=== PATIENT | male | born 1950 | race Caucasian/White ===

== ENCOUNTER → 2018-07-13 | Outpatient (CLI) | payer MEDICARE ==
[~2018-07-13] MED LIST: ASPIRIN CHEWABL81 MG PO; ATORVASTATIN CA20 M1 PO; DILTIAZEM 24HR120 MG PO; LEVOTHYROXINE175 MCG PO; MOBIC7.5 MG PO; OMEPRAZOLE40 MG PO; PROPAFENONE HC150 MG PO; XARE20MG PO; ZESTORETIC 10-1 EACH PO
[2018-07-13 09:08] LABS: ALBUMIN 3.5 gm/dl (3.1-4.5); ALKALINE PHOSPHATASE 55 U/L (45-117); BUN 24 mg/dl (7-24); CHLORIDE 105 mmol/L (98-107); CREATININE 1.27 mg/dL (0.70-1.30); POTASSIUM 4.1 mmol/L (3.5-5.1); SGOT/AST 40 IU/L (3-35); SGPT/ALT 103 U/L (12-78); SODIUM 140 mmol/L (136-145); TOTAL PROTEIN 6.6 gm/dL (6.4-8.2)
== END | disposition home or self-care (01) ==
LOC: LAB 07:55
PROVIDERS: Internal Medicine
DX: I48.91 Unspecified atrial fibrillation (principal)

== ENCOUNTER → 2018-07-18 | Outpatient (CLI) | payer MEDICARE | END | disposition home or self-care (01) | LOC: ORTHO 02:01 | DX: M17.12 Unilateral primary osteoarthritis, left knee (principal) ==

== ENCOUNTER → 2018-08-01 | Outpatient (CLI) | payer MEDICARE ==
[~2018-08-01] MED LIST changes: +TOPROL XL50 M1 PO
== END | disposition home or self-care (01) ==
LOC: RESCLI 02:29
DX: E78.5 Hyperlipidemia, unspecified (principal); I10 Essential (primary) hypertension; E55.9 Vitamin D deficiency, unspecified; E03.9 Hypothyroidism, unspecified; K21.9 Gastro-esophageal reflux disease without esophagitis; M17.12 Unilateral primary osteoarthritis, left knee; I48.0 Paroxysmal atrial fibrillation; E66.09 Other obesity due to excess calories; Z68.31 Body mass index [BMI] 31.0-31.9, adult; Z79.899 Other long term (current) drug therapy; Z79.82 Long term (current) use of aspirin; Z76.89 Persons encountering health services in other specified circumstances; Z88.5 Allergy status to narcotic agent

== ENCOUNTER 2018-08-05 22:55 | Inpatient (IN) | payer MEDICARE ==
[~2018-08-05] VITALS: Ht 190.5 cm; Wt 114.1 kg
--- NOTE | ~2018-08-05 | EKG ---
[place], [place] ELECTROCARDIOGRAM REPORT NAME: MIGUEL CARMICHAEL UNIT #: [id number] ROOM: 419 DOCTOR: LAZARO DRAFT REPORT BIRTHDATE: [address] 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
--- NOTE | ~2018-08-05 | CON ---
[place], [place] REPORT OF CONSULTATION [id number] UN[facility] #: [id number] ROOM: 419 DOCTOR[facility] B[facility] [birth year] DOS: 08/06/2018 CARDIOLOGY CONSULTATION HISTORY OF PRESENT ILLNESS: The patient is a 68-year-old male who came in with history of lightheadedness, dyspnea and progressively gotten worse and came in with atrial fibrillation with RVR through the Emergency Room. His troponin is only minimally probably related to the tachycardia, not significant and electrolytes are unremarkable and magnesium is also unremarkable. Creatinine is 1.26, high normal for last a few days and no chills or fever or vomiting or constipation. Initial electrolytes are also unremarkable. Vital signs first heart rate is about 130-150, atrial fibrillation with rapid ventricular response. Placed on the Cardizem drip. The patient has history of hypertension, who was here with similar symptoms in the past, paroxysmal atrial fibrillation, moderate obesity, thyroid cancer in the past, history of thyroidectomy, tonsillectomy, back surgery and a son works at [employer] who I discussed at length with him. No history of smoking, no alcohol, no illicit drugs. The patient on diltiazem 120 mg daily, levothyroxine, lisinopril, propafenone 150 mg 3 times a day. The patient is on rivaroxaban anticoagulation, baby aspirin daily and we may put on metoprolol 25 mg daily at bedtime to optimize him, keep him in the sinus rhythm. No acute myocardial infarction. Blood pressure has been stable now and 110/54, heart rate is 80. The patient is on Xarelto and switch to oral Cardizem today. A small dose of beta ant would help him. We will have the Toprol given at bedtime. I will follow the patient soon and with electrocardiogram, actually this patient is in sinus rhythm, otherwise we may further increase the medication appropriately and I did explain to the patient and the family the situation and the son is also aware of it. We will continue current medication. PHYSICAL EXAMINATION: VITAL SIGNS: Stable. NECK: No jugular venous distention. The patient in sinus rhythm. Supple. LUNGS: No rales. HEART: S1, S2 regular. ABDOMEN: Soft. SKIN: Color is good. GENERAL: Moderately obese. 1+ ankle edema. NEUROLOGICAL: No focal neurological deficit noted. IMPRESSION: The patient continued to improve sinus rhythm, paroxysmal atrial fibrillation, symptomatic. We will try to keep him in sinus rhythm. Optimize the medical therapy. [place], [place] REPORT OF CONSULTATION NAME: MIGUEL CARMICHAEL UNIT #: [id number] ROOM: [facility] DOCTOR: ISAAC WOODRUFF MD, FACC BIRTHDATE: [birth year] ISAAC WOODRUFF MD CM:CONSTR:REPORT OF CONSULTATION 1613 08/10/18 0748 interface
[~2018-08-05 22:55] MED LIST changes: -TOPROL XL50 M1 PO
[2018-08-05 23:02] VITALS: BP 128/80
[2018-08-05 23:21] VITALS: BP 112/73
[2018-08-05 23:21] LABS: BASO # 0.1 10*3/uL (0.0-0.1); BASO % 0.7 % (0.0-1.0); EOS # 0.6 10*3/uL (0.0-0.4); HEMATOCRIT 41.5 % (42.0-52.0); HEMOGLOBIN 14.2 g/dl (14.0-18.0); LYMPH # 2.2 10*3/uL (1.3-4.4); LYMPH % 21.3 % (27.0-41.0); MEAN CELL VOLUME 87.2 fl (80.0-94.0); MEAN CORPUSCULAR HGB 29.8 pg (27.0-31.0); MEAN CORPUSCULAR HGB CONC 34.2 g/dl (33.0-37.0); MEAN PLATELET VOLUME 9.4 fl (9.6-12.3); MONO # 0.9 10*3/uL (0.1-1.0); MONO % 9.1 % (3.0-9.0); NEUT # 6.3 10*3/uL (2.3-7.9); NEUT % 62.5 % (47.0-73.0); PLATELET COUNT AUTOMATED 333 10*3/uL (130-400); RED BLOOD COUNT 4.76 10*6/uL (4.50-5.90); RED CELL DISTRI WIDTH 12.8 % (0-14.5); WHITE BLOOD COUNT 10.1 10*3/uL (4.8-10.8)
[2018-08-05 23:31] LABS: INTERNATIONAL NORM RATIO 1.1 (2.0-3.5)
[2018-08-05 23:40] LABS: ALBUMIN 3.4 gm/dl (3.1-4.5); ALKALINE PHOSPHATASE 94 U/L (45-117); BUN 15 mg/dl (7-24); CHLORIDE 103 mmol/L (98-107); CREATININE 1.39 mg/dL (0.70-1.30); LIPASE 141 U/L (73-393); POTASSIUM 3.4 mmol/L (3.5-5.1); SGOT/AST 22 IU/L (3-35); SGPT/ALT 39 U/L (12-78); SODIUM 138 mmol/L (136-145); TOTAL PROTEIN 7.4 gm/dL (6.4-8.2)
--- NOTE | 2018-08-05 23:45 | NUR ---
CRITICAL LAB TROP 0.073.
[2018-08-05 23:46] LABS: TROPONIN I 0.073 ng/ml (<0.045)
[2018-08-05 23:47] VITALS: BP 104/58
[2018-08-05 23:50] VITALS: BP 96/62
[2018-08-05 23:57] LABS: ACT PARTIAL THROMBO TIME 32.9 SECONDS (20.8-31.5)
[2018-08-06] VITALS (10 sets, daily range): BP systolic 92–151; BP diastolic 54–74
--- NOTE | 2018-08-06 00:30 | NUR ---
A 68, admitted to , under the services of ABIMAEL Aviles DO with a diagnosis of AFIB W RVR. Chief complaint is AFIB W RVR. Patient arrived via bed from ER. Monitor applied. Initial assessment completed. Vital signs taken and recorded. ABIMAEL AVILES DO notified of admission to the unit. Orders received. See assessment for past medical history, medications and allergies. Patient and/or family oriented to unit. [facility] visitation policy reviewed. Clothing/patient valuable form completed. HANNAH TORIBIO
[2018-08-06] MEDS ORDERED: PROPAFENONE HC150 MG PO (00:38)
--- NOTE | 2018-08-06 01:09 | NUR ---
ATTEMPTED TO CONTACT DR WOODRUFF FOR CONSULT. NO ANSWER AT THIS TIME.
--- NOTE | 2018-08-06 01:12 | NUR ---
MED REC UP TO DATE WITH PATIENT.
--- NOTE | 2018-08-06 01:19 | NUR ---
NOTIFIED DR MCCALL OF NO ANSWER FROM CARDIOLOGY AND PATIENT BEING ON CARDIZEM GTT. STATED TO LEAVE TO GTT AT 15ML/HR AND CALL HIM BACK IF HIS HEART RATE CONTINUES TO GO UP OR HIS BP DROPS. WILL MONITOR PATIENT.
--- NOTE | 2018-08-06 02:01 | NUR ---
PATIENT MEDICATED WITH PRN TYLENOL ORDERD FOR C/O A HEADACHE
--- NOTE | 2018-08-06 02:27 | NUR ---
DR MCCALL NOTIFIED OF CRITICAL TROPONIN, TRENDING UP. AWAITING RETURN CALL FROM CARDIOLOGY. PATIENT CHEST PAIN FREE WITH CARDIZEM DRIP MAINTAINED
--- NOTE | 2018-08-06 03:17 | NUR ---
CARDIZEM GTT TITRATED TO 10 ML/HR AT THIS TIME
--- NOTE | 2018-08-06 05:33 | NUR ---
DR MCCALL AWARE OF CRITICAL TROPONIN 0.115. NO ORDERS.
[2018-08-06 05:34] LABS: BUN 14 mg/dl (7-24); CHLORIDE 108 mmol/L (98-107); CREATININE 1.26 mg/dL (0.70-1.30); PHOSPHOROUS 4.1 mg/dL (2.5-4.9); SODIUM 143 mmol/L (136-145)
[2018-08-06 05:37] LABS: POTASSIUM 4.4 mmol/L (3.5-5.1)
--- NOTE | 2018-08-06 06:00 | NUR ---
PATIENT HR 82-89. CARDIZEM GTT TITRATED DOWN TO 5ML/HR.
[2018-08-06 06:21] LABS: BASO # 0.1 10*3/uL (0.0-0.1); EOS # 0.5 10*3/uL (0.0-0.4); HEMOGLOBIN 13.1 g/dl (14.0-18.0); LYMPH % 21.6 % (27.0-41.0); MEAN CELL VOLUME 90.1 fl (80.0-94.0); MEAN CORPUSCULAR HGB 29.5 pg (27.0-31.0); MEAN CORPUSCULAR HGB CONC 32.8 g/dl (33.0-37.0); MEAN PLATELET VOLUME 9.8 fl (9.6-12.3); MONO # 0.8 10*3/uL (0.1-1.0); MONO % 8.9 % (3.0-9.0); NEUT # 5.9 10*3/uL (2.3-7.9); NEUT % 63.3 % (47.0-73.0); PLATELET COUNT AUTOMATED 294 10*3/uL (130-400); RED BLOOD COUNT 4.44 10*6/uL (4.50-5.90); WHITE BLOOD COUNT 9.4 10*3/uL (4.8-10.8)
--- NOTE | 2018-08-06 07:13 | NUR ---
CALL PLACED TO DR WOODRUFF. WAITING RETURN CALL
--- NOTE | 2018-08-06 07:20 | NUR ---
DR WOODRUFF RETURNED PHONE CALL. ORDERS FOR AN ECHO AND 250 CC NS BOLUS THEN AT 60/HR.
--- NOTE | 2018-08-06 09:00 | NUR ---
Circuit Board Repair Technician in to talk to patient. Patient states lives at home with son. There are few steps in the home. Physician: [facility] [place] [facility] none Patient's level of ADLs: INDEPENDENT Patient has working utilities: all working DME: none Follow-up physician's appointment after d/c: will be made by hospitalist nurse director upon discharge Does patient want to access PORTAL?: no Discharge plan discussed with patient, patient lives at home with son, he states he is independent in adls and ambulation, patient drives, he states he will be going home when able and denies any home needs. GIO SMITH
--- NOTE | 2018-08-06 09:12 | NUR ---
DR. MCCALL TO CONTINUE HOME MEDICATION AND TOLD TO STOP CARDIZEM DRIP. HEART RATE IN THE 80S AT THIS TIME. WILL CONTINUE TO MONITOR.
[2018-08-07] VITALS: BP 93/60
[2018-08-07 05:55] LABS: BUN 12 mg/dl (7-24); CHLORIDE 108 mmol/L (98-107); CREATININE 1.09 mg/dL (0.70-1.30); POTASSIUM 4.2 mmol/L (3.5-5.1); SODIUM 143 mmol/L (136-145)
[2018-08-07 06:22] LABS: BASO # 0.1 10*3/uL (0.0-0.1); BASO % 0.9 % (0.0-1.0); EOS # 0.7 10*3/uL (0.0-0.4); EOS % 8.9 % (1.0-4.0); HEMATOCRIT 36.2 % (42.0-52.0); LYMPH # 1.7 10*3/uL (1.3-4.4); LYMPH % 22.4 % (27.0-41.0); MEAN CELL VOLUME 88.7 fl (80.0-94.0); MEAN CORPUSCULAR HGB 29.4 pg (27.0-31.0); MEAN CORPUSCULAR HGB CONC 33.1 g/dl (33.0-37.0); MEAN PLATELET VOLUME 9.6 fl (9.6-12.3); MONO # 0.7 10*3/uL (0.1-1.0); MONO % 8.8 % (3.0-9.0); NEUT # 4.4 10*3/uL (2.3-7.9); NEUT % 58.7 % (47.0-73.0); PLATELET COUNT AUTOMATED 288 10*3/uL (130-400); RED BLOOD COUNT 4.08 10*6/uL (4.50-5.90); RED CELL DISTRI WIDTH 13.2 % (0-14.5); WHITE BLOOD COUNT 7.4 10*3/uL (4.8-10.8)
[2018-08-07 08:00] VITALS: BP 96/68
[2018-08-07] MEDS ORDERED: TOPROL XL50 M1 PO (10:29)
--- NOTE | 2018-08-07 11:00 | NUR ---
Discharge instructions reviewed with patient. Patient receptive and verbalizes understanding. Follow-up care understood. Written instructions given to patient. called new rx to [facility] in [facility], pt given printed rx. understands to pick up operator new rx and understands directions to take. pt understands discharge instructions, no questions at this time. iv x2 removed left arm, tele removed. pt waiting for family to arrive for discharge MARC BEVERLY
== END 2018-08-07 11:00 | disposition home or self-care (01) | DRG 280 ==
LOC: ED 22:55 → 4E 23:44 → EDHOLD 23:44 → 4E 23:58
PROVIDERS: Family Medicine; Nurse Practitioner Family; Student in an Organized Health Care Education/Training Program; ADMIT Internal Medicine
DX: I48.0 Paroxysmal atrial fibrillation (principal); I21.A1 Myocardial infarction type 2; N17.0 Acute kidney failure with tubular necrosis; R65.10 Systemic inflammatory response syndrome (SIRS) of non-infectious origin without acute organ dysfunction; E87.6 Hypokalemia; R73.9 Hyperglycemia, unspecified; R74.8 Abnormal levels of other serum enzymes; D64.9 Anemia, unspecified; I10 Essential (primary) hypertension; E89.0 Postprocedural hypothyroidism; E78.5 Hyperlipidemia, unspecified; E66.9 Obesity, unspecified; Z85.850 Personal history of malignant neoplasm of thyroid; Z82.49 Family history of ischemic heart disease and other diseases of the circulatory system; Z80.0 Family history of malignant neoplasm of digestive organs; Z88.8 Allergy status to other drugs, medicaments and biological substances; Z79.82 Long term (current) use of aspirin; Z79.899 Other long term (current) drug therapy; Z68.31 Body mass index [BMI] 31.0-31.9, adult

== ENCOUNTER → 2018-08-16 | Outpatient (CLI) | payer MEDICARE ==
[~2018-08-16] MED LIST changes: +TOPROL XL50 M1 PO
[2018-08-16 07:11] LABS: BASO # 0.1 10*3/uL (0.0-0.1); BASO % 0.9 % (0.0-1.0); EOS # 0.5 10*3/uL (0.0-0.4); EOS % 5.8 % (1.0-4.0); HEMOGLOBIN 14.1 g/dl (14.0-18.0); LYMPH # 1.9 10*3/uL (1.3-4.4); LYMPH % 21.1 % (27.0-41.0); MEAN CELL VOLUME 88.4 fl (80.0-94.0); MEAN CORPUSCULAR HGB 29.7 pg (27.0-31.0); MEAN CORPUSCULAR HGB CONC 33.6 g/dl (33.0-37.0); MEAN PLATELET VOLUME 9.3 fl (9.6-12.3); MONO # 0.6 10*3/uL (0.1-1.0); MONO % 6.6 % (3.0-9.0); NEUT # 5.8 10*3/uL (2.3-7.9); NEUT % 65.3 % (47.0-73.0); PLATELET COUNT AUTOMATED 395 10*3/uL (130-400); RED BLOOD COUNT 4.75 10*6/uL (4.50-5.90); RED CELL DISTRI WIDTH 12.9 % (0-14.5); WHITE BLOOD COUNT 8.9 10*3/uL (4.8-10.8)
[2018-08-16 07:44] LABS: BILIRUBIN 1+ (NEGATIVE); BLOOD 3+ (NEGATIVE); CLARITY CLOUDY (CLEAR); COLOR RED (YELLOW); GLUCOSE NEGATIVE (NEGATIVE); KETONE NEGATIVE (NEGATIVE); LEUKO ESTERASE TRACE (NEGATIVE); NITRITE POSITIVE (NEGATIVE); PH 5.5 (5.0-9.0); UROBILINOGEN 0.2 E.U./dl (0.2-1.0)
[2018-08-16 09:14] LABS: BACTERIA 2+; RBC TNTC rbc/hpf (0-2); WBC 16-20 wbc/hpf (0-5)
== END | disposition home or self-care (01) ==
LOC: LAB 06:35
PROVIDERS: Internal Medicine Cardiovascular Disease
DX: I48.0 Paroxysmal atrial fibrillation (principal); E03.9 Hypothyroidism, unspecified; R30.0 Dysuria

== ENCOUNTER → 2018-08-31 | Outpatient (CLI) | payer MEDICARE | END | disposition home or self-care (01) | LOC: RESCLI 02:53 | DX: E78.00 Pure hypercholesterolemia, unspecified (principal); K21.9 Gastro-esophageal reflux disease without esophagitis; E55.9 Vitamin D deficiency, unspecified; I10 Essential (primary) hypertension; E03.9 Hypothyroidism, unspecified; I48.0 Paroxysmal atrial fibrillation; E66.09 Other obesity due to excess calories; Z68.31 Body mass index [BMI] 31.0-31.9, adult; Z79.899 Other long term (current) drug therapy; Z79.82 Long term (current) use of aspirin ==

== ENCOUNTER → 2018-09-18 | Outpatient (CLI) | payer MEDICARE | END | disposition home or self-care (01) | LOC: LAB 09:44 | DX: Z12.5 Encounter for screening for malignant neoplasm of prostate (principal); E03.9 Hypothyroidism, unspecified ==

== ENCOUNTER → 2018-10-10 | Outpatient (CLI) | payer MEDICARE | END | disposition home or self-care (01) | LOC: RESCLI 02:45 | DX: M17.12 Unilateral primary osteoarthritis, left knee (principal); R31.9 Hematuria, unspecified; M79.671 Pain in right foot; G47.30 Sleep apnea, unspecified; I10 Essential (primary) hypertension; E78.5 Hyperlipidemia, unspecified; E55.9 Vitamin D deficiency, unspecified; E03.9 Hypothyroidism, unspecified; K21.9 Gastro-esophageal reflux disease without esophagitis; I48.0 Paroxysmal atrial fibrillation; E66.3 Overweight ==

== ENCOUNTER → 2018-11-15 | Outpatient (CLI) | payer MEDICARE ==
--- NOTE | ~2018-11-15 | HM ---
[place], [place] HOLTER MONITOR REPORT NAME: MIGUEL CARMICHAEL UNIT #: [id number] ROOM: DOCTOR: RANJAN MEYERS [facility] BIRTHDATE: [birth year] DOS: 11/15/2018 The patient denies any significant symptoms. Did not record much in the dairy. Basic rhythm in sinus. Borderline sinus bradycardia, rate of 50. Frequent PACs, no sustained nonsustained ventricular tachycardia. There are episodes of bradycardia, rate of 45, but not consistently. Holter monitor still appears to be fairly benign. No ventricular tachycardia noted. No conduction abnormalities noted. May continue to follow the patient conservatively at this time. Since there are no significant symptoms are recorded. ISAAC WOODRUFF MD CM:HOLTER:HOLTER MONITOR REPORT [id number] ISAAC WOODRUFF MD [facility]
== END | disposition home or self-care (01) ==
LOC: CARD 11-05 09:30
DX: I48.0 Paroxysmal atrial fibrillation (principal); I10 Essential (primary) hypertension

== ENCOUNTER → 2018-12-11 | Outpatient (CLI) | payer MEDICARE | END | disposition home or self-care (01) | LOC: RESCLI 00:38 | DX: E78.5 Hyperlipidemia, unspecified (principal); I10 Essential (primary) hypertension; E55.9 Vitamin D deficiency, unspecified; E03.9 Hypothyroidism, unspecified; M17.12 Unilateral primary osteoarthritis, left knee; I48.0 Paroxysmal atrial fibrillation; K21.9 Gastro-esophageal reflux disease without esophagitis; M19.90 Unspecified osteoarthritis, unspecified site ==

== ENCOUNTER → 2018-12-25 | Outpatient (CLI) | payer MEDICARE | END | disposition home or self-care (01) | LOC: LAB 09:24 | DX: R97.20 Elevated prostate specific antigen [PSA] (principal) ==

== ENCOUNTER → 2019-03-05 | Outpatient (CLI) | payer MEDICARE | END | disposition home or self-care (01) | LOC: RESCLI 01:01 | DX: E78.5 Hyperlipidemia, unspecified (principal); I10 Essential (primary) hypertension; E55.9 Vitamin D deficiency, unspecified; E03.9 Hypothyroidism, unspecified; M17.12 Unilateral primary osteoarthritis, left knee; I48.0 Paroxysmal atrial fibrillation; K21.9 Gastro-esophageal reflux disease without esophagitis; Z79.899 Other long term (current) drug therapy ==

== ENCOUNTER → 2019-03-06 | Outpatient (CLI) | payer MEDICARE ==
[2019-03-06 09:04] LABS: BASO % 0.7 % (0.0-1.0); EOS # 0.2 10*3/uL (0.0-0.4); EOS % 2.6 % (1.0-4.0); HEMATOCRIT 41.9 % (42.0-52.0); HEMOGLOBIN 13.9 g/dl (14.0-18.0); LYMPH # 1.7 10*3/uL (1.3-4.4); LYMPH % 28.6 % (27.0-41.0); MEAN CELL VOLUME 90.7 fl (80.0-94.0); MEAN CORPUSCULAR HGB 30.1 pg (27.0-31.0); MEAN CORPUSCULAR HGB CONC 33.2 g/dl (33.0-37.0); MONO # 0.5 10*3/uL (0.1-1.0); MONO % 8.4 % (3.0-9.0); NEUT # 3.5 10*3/uL (2.3-7.9); NEUT % 59.4 % (47.0-73.0); PLATELET COUNT AUTOMATED 288 10*3/uL (130-400); RED BLOOD COUNT 4.62 10*6/uL (4.50-5.90); WHITE BLOOD COUNT 5.8 10*3/uL (4.8-10.8)
[2019-03-06 09:36] LABS: ALBUMIN 3.7 gm/dl (3.1-4.5); ALKALINE PHOSPHATASE 56 U/L (45-117); BUN 21 mg/dl (7-24); CHLORIDE 106 mmol/L (98-107); CHOLESTEROL 159 mg/dL (<200); CREATININE 1.26 mg/dL (0.70-1.30); HDL CHOLESTEROL 36 mg/dl (40-60); LDL CHOLESTEROL 103 mg/dL (9-159); POTASSIUM 4.2 mmol/L (3.5-5.1); SGOT/AST 18 IU/L (3-35); SGPT/ALT 30 U/L (12-78); SODIUM 141 mmol/L (136-145); TRIGLYCERIDES 100 mg/dl (<150); VLDL CHOLESTEROL 20 mg/dL (6-40)
[2019-03-06 09:54] LABS: VITAMIN D, 25-HYDROXY 33.5 ng/mL (30-100)
[2019-03-06 09:59] LABS: FREE T4 1.15 ng/dl (0.76-1.46)
== END | disposition home or self-care (01) ==
LOC: LAB 08:04
PROVIDERS: Internal Medicine
DX: E55.9 Vitamin D deficiency, unspecified (principal); E78.00 Pure hypercholesterolemia, unspecified; I10 Essential (primary) hypertension; I73.9 Peripheral vascular disease, unspecified; R53.82 Chronic fatigue, unspecified; I48.91 Unspecified atrial fibrillation; E78.5 Hyperlipidemia, unspecified; E03.9 Hypothyroidism, unspecified

== ENCOUNTER → 2019-04-11 | Outpatient (CLI) | payer MEDICARE | END | disposition home or self-care (01) | LOC: LAB 12:00 | DX: R97.20 Elevated prostate specific antigen [PSA] (principal) ==

== ENCOUNTER → 2019-05-14 | Outpatient (CLI) | payer MEDICARE | END | disposition home or self-care (01) | LOC: RESCLI 01:41 | DX: I48.0 Paroxysmal atrial fibrillation (principal); I10 Essential (primary) hypertension; E78.5 Hyperlipidemia, unspecified; E03.2 Hypothyroidism due to medicaments and other exogenous substances; E55.9 Vitamin D deficiency, unspecified; I73.9 Peripheral vascular disease, unspecified; E78.00 Pure hypercholesterolemia, unspecified; M17.12 Unilateral primary osteoarthritis, left knee; E66.09 Other obesity due to excess calories; E53.8 Deficiency of other specified B group vitamins; Z79.899 Other long term (current) drug therapy ==

== ENCOUNTER → 2019-05-22 | Outpatient (CLI) | payer MEDICARE ==
[2019-05-22 10:17] LABS: BASO # 0.1 10*3/uL (0.0-0.1); BASO % 0.8 % (0.0-1.0); EOS # 0.2 10*3/uL (0.0-0.4); EOS % 2.4 % (1.0-4.0); HEMATOCRIT 43.4 % (42.0-52.0); HEMOGLOBIN 14.3 g/dl (14.0-18.0); LYMPH # 1.9 10*3/uL (1.3-4.4); LYMPH % 29.8 % (27.0-41.0); MEAN CELL VOLUME 90.8 fl (80.0-94.0); MEAN CORPUSCULAR HGB 29.9 pg (27.0-31.0); MEAN CORPUSCULAR HGB CONC 32.9 g/dl (33.0-37.0); MEAN PLATELET VOLUME 9.9 fl (9.6-12.3); MONO # 0.4 10*3/uL (0.1-1.0); NEUT # 3.8 10*3/uL (2.3-7.9); NEUT % 59.7 % (47.0-73.0); PLATELET COUNT AUTOMATED 281 10*3/uL (130-400); RED BLOOD COUNT 4.78 10*6/uL (4.50-5.90); RED CELL DISTRI WIDTH 12.6 % (0-14.5); WHITE BLOOD COUNT 6.3 10*3/uL (4.8-10.8)
[2019-05-22 10:51] LABS: BUN 22 mg/dl (7-24); CHLORIDE 103 mmol/L (98-107); CHOLESTEROL 136 mg/dL (<200); HDL CHOLESTEROL 31 mg/dl (40-60); LDL CHOLESTEROL 81 mg/dL (9-159); POTASSIUM 4.1 mmol/L (3.5-5.1); SGOT/AST 15 IU/L (3-35); SGPT/ALT 29 U/L (12-78); SODIUM 140 mmol/L (136-145); TRIGLYCERIDES 122 mg/dl (<150); VLDL CHOLESTEROL 24 mg/dL (6-40)
== END | disposition home or self-care (01) ==
LOC: LAB 09:44
PROVIDERS: Internal Medicine Cardiovascular Disease
DX: I48.0 Paroxysmal atrial fibrillation (principal); I10 Essential (primary) hypertension; E03.9 Hypothyroidism, unspecified

== ENCOUNTER → 2019-08-28 | Outpatient (CLI) | payer MEDICARE ==
[2019-08-31 04:09] LABS: PROSTATE SPECIFIC AG, SERUM 1.8 ng/mL (0.0-4.0)
[2019-08-31 06:07] LABS: PROSTATE SPECIFIC AG FREE 0.64 ng/mL
== END | disposition home or self-care (01) ==
LOC: RESCLI 01:44
PROVIDERS: Internal Medicine
DX: Z12.5 Encounter for screening for malignant neoplasm of prostate (principal); E03.9 Hypothyroidism, unspecified; I10 Essential (primary) hypertension; E78.5 Hyperlipidemia, unspecified; I48.0 Paroxysmal atrial fibrillation; M17.12 Unilateral primary osteoarthritis, left knee; N40.0 Benign prostatic hyperplasia without lower urinary tract symptoms; K21.9 Gastro-esophageal reflux disease without esophagitis

== ENCOUNTER → 2020-01-01 | Outpatient (CLI) | payer MEDICARE ==
[2020-01-01 11:18] LABS: BASO # 0.1 10*3/uL (0.0-0.1); BASO % 0.9 % (0.0-1.0); EOS # 0.2 10*3/uL (0.0-0.4); EOS % 2.9 % (1.0-4.0); HEMATOCRIT 42.2 % (42.0-52.0); LYMPH # 1.6 10*3/uL (1.3-4.4); LYMPH % 28.1 % (27.0-41.0); MEAN CELL VOLUME 88.8 fl (80.0-94.0); MEAN CORPUSCULAR HGB 29.7 pg (27.0-31.0); MEAN CORPUSCULAR HGB CONC 33.4 g/dl (33.0-37.0); MEAN PLATELET VOLUME 9.9 fl (9.6-12.3); MONO # 0.5 10*3/uL (0.1-1.0); MONO % 9.2 % (3.0-9.0); NEUT # 3.3 10*3/uL (2.3-7.9); NEUT % 58.5 % (47.0-73.0); PLATELET COUNT AUTOMATED 300 10*3/uL (130-400); RED BLOOD COUNT 4.75 10*6/uL (4.50-5.90); WHITE BLOOD COUNT 5.6 10*3/uL (4.8-10.8)
[2020-01-01 11:40] LABS: BUN 19 mg/dl (7-24); CHLORIDE 107 mmol/L (98-107); CHOLESTEROL 144 mg/dL (<200); CREATININE 1.32 mg/dL (0.70-1.30); HDL CHOLESTEROL 32 mg/dl (40-60); LDL CHOLESTEROL 85 mg/dL (9-159); POTASSIUM 3.9 mmol/L (3.5-5.1); SGOT/AST 20 IU/L (3-35); SGPT/ALT 37 U/L (12-78); SODIUM 141 mmol/L (136-145); TRIGLYCERIDES 137 mg/dl (<150); URIC ACID 6.7 mg/dL (3.5-7.2); VLDL CHOLESTEROL 27 mg/dL (6-40)
[2020-01-01 12:28] LABS: CLARITY CLEAR (CLEAR); COLOR YELLOW (YELLOW)
[2020-01-01 13:49] LABS: BACTERIA TRACE; BILIRUBIN NEGATIVE (NEGATIVE); BLOOD 2+ (NEGATIVE); GLUCOSE NEGATIVE (NEGATIVE); KETONE NEGATIVE (NEGATIVE); LEUKO ESTERASE NEGATIVE (NEGATIVE); NITRITE NEGATIVE (NEGATIVE); UROBILINOGEN 0.2 E.U./dl (0.2-1.0)
[2020-01-01 13:50] LABS: MUCOUS 1+
== END | disposition home or self-care (01) ==
LOC: LAB 10:27
PROVIDERS: Nurse Practitioner Family; Urology
DX: Z12.5 Encounter for screening for malignant neoplasm of prostate (principal); I48.0 Paroxysmal atrial fibrillation; I10 Essential (primary) hypertension; R31.0 Gross hematuria; E03.9 Hypothyroidism, unspecified

== ENCOUNTER → 2020-05-05 | Outpatient (CLI) | payer MEDICARE | END | disposition home or self-care (01) | LOC: RESCLI 05:56 | PROVIDERS: ATTEND Student in an Organized Health Care Education/Training Program | DX: I73.9 Peripheral vascular disease, unspecified (principal); E55.9 Vitamin D deficiency, unspecified; I10 Essential (primary) hypertension; E78.5 Hyperlipidemia, unspecified; K21.9 Gastro-esophageal reflux disease without esophagitis; M17.12 Unilateral primary osteoarthritis, left knee; I48.0 Paroxysmal atrial fibrillation; N40.0 Benign prostatic hyperplasia without lower urinary tract symptoms; G47.30 Sleep apnea, unspecified; E03.9 Hypothyroidism, unspecified; M54.31 Sciatica, right side; E66.09 Other obesity due to excess calories; L98.9 Disorder of the skin and subcutaneous tissue, unspecified; Z79.899 Other long term (current) drug therapy; Z98.890 Other specified postprocedural states; Z88.8 Allergy status to other drugs, medicaments and biological substances ==

== ENCOUNTER → 2020-05-08 | Outpatient (CLI) | payer MEDICARE ==
[2020-05-08 10:07] LABS: BASO % 0.7 % (0.0-1.0); EOS # 0.2 10*3/uL (0.0-0.4); EOS % 3.1 % (1.0-4.0); HEMATOCRIT 43.7 % (42.0-52.0); LYMPH # 1.8 10*3/uL (1.3-4.4); LYMPH % 28.7 % (27.0-41.0); MEAN CELL VOLUME 88.3 fl (80.0-94.0); MEAN CORPUSCULAR HGB 29.3 pg (27.0-31.0); MEAN CORPUSCULAR HGB CONC 33.2 g/dl (33.0-37.0); MEAN PLATELET VOLUME 9.7 fl (9.6-12.3); MONO # 0.4 10*3/uL (0.1-1.0); MONO % 7.1 % (3.0-9.0); NEUT # 3.7 10*3/uL (2.3-7.9); NEUT % 60.2 % (47.0-73.0); PLATELET COUNT AUTOMATED 321 10*3/uL (130-400); RED BLOOD COUNT 4.95 10*6/uL (4.50-5.90); RED CELL DISTRI WIDTH 12.7 % (0-14.5); WHITE BLOOD COUNT 6.1 10*3/uL (4.8-10.8)
[2020-05-08 10:39] LABS: ALBUMIN 3.5 gm/dl (3.1-4.5); ALKALINE PHOSPHATASE 68 U/L (45-117); BUN 20 mg/dl (7-24); CHLORIDE 106 mmol/L (98-107); CHOLESTEROL 152 mg/dL (<200); CREATININE 1.34 mg/dL (0.70-1.30); HDL CHOLESTEROL 31 mg/dl (40-60); LDL CHOLESTEROL 96 mg/dL (9-159); POTASSIUM 4.1 mmol/L (3.5-5.1); SGOT/AST 14 IU/L (3-35); SGPT/ALT 26 U/L (12-78); SODIUM 142 mmol/L (136-145); TOTAL PROTEIN 7.3 gm/dL (6.4-8.2); TRIGLYCERIDES 124 mg/dl (<150); VLDL CHOLESTEROL 25 mg/dL (6-40)
== END | disposition home or self-care (01) ==
LOC: LAB 09:23
PROVIDERS: Hospitalist; ATTEND Internal Medicine
DX: I10 Essential (primary) hypertension (principal); E78.00 Pure hypercholesterolemia, unspecified; E03.9 Hypothyroidism, unspecified; E66.09 Other obesity due to excess calories; Z79.899 Other long term (current) drug therapy

== ENCOUNTER → 2020-06-11 | Outpatient (CLI) | payer MEDICARE | END | disposition home or self-care (01) | LOC: RESCLI 00:47 | PROVIDERS: ATTEND Internal Medicine | DX: K21.9 Gastro-esophageal reflux disease without esophagitis (principal); E55.9 Vitamin D deficiency, unspecified; I73.9 Peripheral vascular disease, unspecified; I10 Essential (primary) hypertension; M17.12 Unilateral primary osteoarthritis, left knee; E78.5 Hyperlipidemia, unspecified; E03.9 Hypothyroidism, unspecified; I48.0 Paroxysmal atrial fibrillation; G47.30 Sleep apnea, unspecified; N40.0 Benign prostatic hyperplasia without lower urinary tract symptoms; M54.31 Sciatica, right side; E66.09 Other obesity due to excess calories; R53.82 Chronic fatigue, unspecified; G62.9 Polyneuropathy, unspecified; R09.82 Postnasal drip; Z79.899 Other long term (current) drug therapy; Z98.890 Other specified postprocedural states; Z88.8 Allergy status to other drugs, medicaments and biological substances ==

== ENCOUNTER → 2020-06-23 | Outpatient (CLI) | payer MEDICARE | END | disposition home or self-care (01) | LOC: US 12:58 | PROVIDERS: ATTEND Hospitalist | DX: I73.9 Peripheral vascular disease, unspecified (principal) ==

== ENCOUNTER → 2020-07-13 | Outpatient (CLI) | payer MEDICARE ==
[2020-07-13 12:36] LABS: BUN 22 mg/dl (7-24); CHLORIDE 108 mmol/L (98-107); CREATININE 1.27 mg/dL (0.70-1.30); POTASSIUM 4.4 mmol/L (3.5-5.1); SODIUM 143 mmol/L (136-145)
== END | disposition home or self-care (01) ==
LOC: LAB 11:48
PROVIDERS: ATTEND Nurse Practitioner Family
DX: I11.9 Hypertensive heart disease without heart failure (principal); I48.0 Paroxysmal atrial fibrillation; Z79.899 Other long term (current) drug therapy

== ENCOUNTER → 2020-09-24 | Outpatient (CLI) | payer MEDICARE | END | disposition home or self-care (01) | LOC: RESCLI 01:02 | PROVIDERS: ATTEND Internal Medicine | DX: E55.9 Vitamin D deficiency, unspecified (principal); K21.9 Gastro-esophageal reflux disease without esophagitis; I73.9 Peripheral vascular disease, unspecified; R53.82 Chronic fatigue, unspecified; I10 Essential (primary) hypertension; M17.12 Unilateral primary osteoarthritis, left knee; E78.5 Hyperlipidemia, unspecified; E03.9 Hypothyroidism, unspecified; I48.0 Paroxysmal atrial fibrillation; E66.09 Other obesity due to excess calories; G47.30 Sleep apnea, unspecified; N40.0 Benign prostatic hyperplasia without lower urinary tract symptoms; M54.31 Sciatica, right side; R73.03 Prediabetes; J30.2 Other seasonal allergic rhinitis; Z79.82 Long term (current) use of aspirin; Z79.899 Other long term (current) drug therapy; Z98.890 Other specified postprocedural states; Z88.8 Allergy status to other drugs, medicaments and biological substances ==

== ENCOUNTER → 2020-10-12 | Outpatient (CLI) | payer MEDICARE | END | disposition home or self-care (01) | LOC: LAB 08:01 → US 08:30 | PROVIDERS: Hospitalist; ATTEND Internal Medicine Nephrology | DX: E89.0 Postprocedural hypothyroidism (principal) ==

== ENCOUNTER → 2021-01-07 | Outpatient (CLI) | payer MEDICARE | END | disposition home or self-care (01) | LOC: RESCLI 01:56 | PROVIDERS: ATTEND Internal Medicine | DX: K21.9 Gastro-esophageal reflux disease without esophagitis (principal); E55.9 Vitamin D deficiency, unspecified; R53.82 Chronic fatigue, unspecified; I10 Essential (primary) hypertension; M17.12 Unilateral primary osteoarthritis, left knee; E78.5 Hyperlipidemia, unspecified; E03.9 Hypothyroidism, unspecified; I48.0 Paroxysmal atrial fibrillation; E66.09 Other obesity due to excess calories; G47.30 Sleep apnea, unspecified; N40.0 Benign prostatic hyperplasia without lower urinary tract symptoms; M54.31 Sciatica, right side; G62.9 Polyneuropathy, unspecified; J30.2 Other seasonal allergic rhinitis; R73.03 Prediabetes; Z85.850 Personal history of malignant neoplasm of thyroid; Z13.820 Encounter for screening for osteoporosis; Z79.82 Long term (current) use of aspirin; Z79.899 Other long term (current) drug therapy; Z98.890 Other specified postprocedural states; Z88.0 Allergy status to penicillin ==

== ENCOUNTER → 2021-01-08 | Outpatient (CLI) | payer MEDICARE | END | disposition home or self-care (01) | LOC: LAB 09:19 | PROVIDERS: ATTEND Internal Medicine | DX: R73.03 Prediabetes (principal) ==

== ENCOUNTER → 2021-02-04 | Outpatient (CLI) | payer MEDICARE | END | disposition home or self-care (01) | LOC: CARD 11:46 | PROVIDERS: ATTEND Hospitalist | DX: I48.0 Paroxysmal atrial fibrillation (principal) ==

== ENCOUNTER → 2021-03-02 | Outpatient (CLI) | payer MEDICARE | END | disposition home or self-care (01) | LOC: RAD 10:04 | PROVIDERS: ATTEND Nurse Practitioner Family | DX: R05 Cough (principal) ==

== ENCOUNTER → 2021-03-09 | Outpatient (CLI) | payer MEDICARE | END | disposition home or self-care (01) | LOC: RESCLI 01:05 | PROVIDERS: ATTEND Student in an Organized Health Care Education/Training Program | DX: R05 Cough (principal); K21.9 Gastro-esophageal reflux disease without esophagitis; E55.9 Vitamin D deficiency, unspecified; I73.9 Peripheral vascular disease, unspecified; Z13.820 Encounter for screening for osteoporosis; R53.82 Chronic fatigue, unspecified; I10 Essential (primary) hypertension; M17.12 Unilateral primary osteoarthritis, left knee; E78.5 Hyperlipidemia, unspecified; E03.9 Hypothyroidism, unspecified; I48.0 Paroxysmal atrial fibrillation; G47.30 Sleep apnea, unspecified; N40.0 Benign prostatic hyperplasia without lower urinary tract symptoms; G62.9 Polyneuropathy, unspecified; J30.2 Other seasonal allergic rhinitis; M54.31 Sciatica, right side; R73.03 Prediabetes; K59.09 Other constipation; Z85.850 Personal history of malignant neoplasm of thyroid; Z79.82 Long term (current) use of aspirin; Z79.899 Other long term (current) drug therapy; Z88.8 Allergy status to other drugs, medicaments and biological substances; Z98.890 Other specified postprocedural states ==

== ENCOUNTER → 2021-07-13 | Outpatient (CLI) | payer MEDICARE ==
[2021-07-13 11:50] LABS: BASO # 0.1 10*3/uL (0.0-0.1); BASO % 0.7 % (0.0-1.0); EOS # 0.3 10*3/uL (0.0-0.4); EOS % 3.8 % (1.0-4.0); HEMATOCRIT 43.2 % (42.0-52.0); LYMPH % 26.2 % (27.0-41.0); MEAN CELL VOLUME 89.3 fl (80.0-94.0); MEAN CORPUSCULAR HGB 29.5 pg (27.0-31.0); MEAN CORPUSCULAR HGB CONC 33.1 g/dl (33.0-37.0); MEAN PLATELET VOLUME 9.6 fl (9.6-12.3); MONO # 0.6 10*3/uL (0.1-1.0); MONO % 8.4 % (3.0-9.0); NEUT # 4.6 10*3/uL (2.3-7.9); NEUT % 60.6 % (47.0-73.0); PLATELET COUNT AUTOMATED 307 10*3/uL (130-400); RED BLOOD COUNT 4.84 10*6/uL (4.50-5.90); RED CELL DISTRI WIDTH 12.9 % (0-14.5); WHITE BLOOD COUNT 7.6 10*3/uL (4.8-10.8)
[2021-07-13 12:06] LABS: ALBUMIN 3.6 gm/dl (3.1-4.5); CREATININE 1.42 mg/dL (0.70-1.30); POTASSIUM 4.3 mmol/L (3.5-5.1); TOTAL PROTEIN 7.4 gm/dL (6.4-8.2)
== END | disposition home or self-care (01) ==
LOC: RESCLI 00:26
PROVIDERS: Hospitalist; ATTEND Family Medicine
DX: E78.5 Hyperlipidemia, unspecified (principal); I48.0 Paroxysmal atrial fibrillation; R73.03 Prediabetes; R53.83 Other fatigue; G47.09 Other insomnia; G62.9 Polyneuropathy, unspecified; E55.9 Vitamin D deficiency, unspecified; I73.9 Peripheral vascular disease, unspecified; I10 Essential (primary) hypertension; J30.2 Other seasonal allergic rhinitis; K59.09 Other constipation; K21.9 Gastro-esophageal reflux disease without esophagitis; M17.12 Unilateral primary osteoarthritis, left knee; E03.9 Hypothyroidism, unspecified; Z79.82 Long term (current) use of aspirin; Z79.899 Other long term (current) drug therapy; Z98.890 Other specified postprocedural states; Z88.8 Allergy status to other drugs, medicaments and biological substances

== ENCOUNTER → 2021-10-12 | Outpatient (CLI) | payer MEDICARE | END | disposition home or self-care (01) | LOC: RESCLI 01:04 | PROVIDERS: ATTEND Emergency Medicine | DX: E55.9 Vitamin D deficiency, unspecified (principal); K21.9 Gastro-esophageal reflux disease without esophagitis; I73.9 Peripheral vascular disease, unspecified; I10 Essential (primary) hypertension; M17.12 Unilateral primary osteoarthritis, left knee; E78.5 Hyperlipidemia, unspecified; E03.9 Hypothyroidism, unspecified; I48.0 Paroxysmal atrial fibrillation; E66.09 Other obesity due to excess calories; G47.30 Sleep apnea, unspecified; N40.0 Benign prostatic hyperplasia without lower urinary tract symptoms; M54.31 Sciatica, right side; G62.9 Polyneuropathy, unspecified; J30.2 Other seasonal allergic rhinitis; Z85.850 Personal history of malignant neoplasm of thyroid; H66.001 Acute suppurative otitis media without spontaneous rupture of ear drum, right ear; K59.09 Other constipation; R73.03 Prediabetes; Z79.899 Other long term (current) drug therapy; Z98.890 Other specified postprocedural states ==

== ENCOUNTER → 2022-01-11 | Outpatient (CLI) | payer MEDICARE | END | disposition home or self-care (01) | LOC: RESCLI 01-10 04:44 | PROVIDERS: ATTEND Family Medicine | DX: K21.9 Gastro-esophageal reflux disease without esophagitis (principal); E55.9 Vitamin D deficiency, unspecified; I73.9 Peripheral vascular disease, unspecified; R53.82 Chronic fatigue, unspecified; I10 Essential (primary) hypertension; M17.12 Unilateral primary osteoarthritis, left knee; E78.5 Hyperlipidemia, unspecified; E03.9 Hypothyroidism, unspecified; I48.0 Paroxysmal atrial fibrillation; E66.09 Other obesity due to excess calories; G47.30 Sleep apnea, unspecified; N40.0 Benign prostatic hyperplasia without lower urinary tract symptoms; G62.9 Polyneuropathy, unspecified; J30.2 Other seasonal allergic rhinitis; Z85.850 Personal history of malignant neoplasm of thyroid; M54.31 Sciatica, right side; M54.32 Sciatica, left side; K59.09 Other constipation; Z79.899 Other long term (current) drug therapy; Z79.82 Long term (current) use of aspirin; Z88.8 Allergy status to other drugs, medicaments and biological substances ==

== ENCOUNTER → 2022-01-11 | Outpatient (CLI) | payer MEDICARE ==
[2022-01-11 12:55] LABS: CHLORIDE 106 mmol/L (98-107); POTASSIUM 4.4 mmol/L (3.5-5.1); SODIUM 139 mmol/L (136-145)
[2022-01-11 13:10] LABS: ALKALINE PHOSPHATASE 61 U/L (45-117); BUN 20 mg/dl (7-24); CHOLESTEROL 151 mg/dL (<200); CREATININE 1.41 mg/dL (0.70-1.30); IRON 90 ug/dL (65-175); LDL CHOLESTEROL 94 mg/dL (9-159); SGOT/AST 15 IU/L (3-35); SGPT/ALT 30 U/L (12-78); TOTAL IRON BINDING CAPACITY 301 ug/dl (250-450); TRIGLYCERIDES 123 mg/dl (<150)
== END ==
LOC: LAB 11:30
PROVIDERS: Hospitalist; ATTEND Internal Medicine
DX: R53.82 Chronic fatigue, unspecified (principal); E78.5 Hyperlipidemia, unspecified; G62.9 Polyneuropathy, unspecified

== ENCOUNTER 2022-03-20 18:43 | Emergency (ER) | payer MEDICARE ==
[~2022-03-20] VITALS: Ht 190.5 cm; Wt 122.0 kg
== END 2022-03-20 22:12 | disposition home or self-care (01) ==
LOC: ED 18:43
DX: S22.32XA Fracture of one rib, left side, initial encounter for closed fracture (principal); E66.9 Obesity, unspecified; Z88.8 Allergy status to other drugs, medicaments and biological substances; Z79.899 Other long term (current) drug therapy; Z79.82 Long term (current) use of aspirin; Z98.890 Other specified postprocedural states; Z90.89 Acquired absence of other organs; W19.XXXA Unspecified fall, initial encounter; Y93.89 Activity, other specified; Y92.89 Other specified places as the place of occurrence of the external cause; Y99.8 Other external cause status

== ENCOUNTER → 2022-03-29 | Outpatient (CLI) | payer MEDICARE | END | disposition home or self-care (01) | LOC: RESCLI 02:34 | PROVIDERS: ATTEND Internal Medicine | DX: I10 Essential (primary) hypertension (principal); E66.09 Other obesity due to excess calories; W01.198D Fall on same level from slipping, tripping and stumbling with subsequent striking against other object, subsequent encounter; Z68.33 Body mass index [BMI] 33.0-33.9, adult; K59.00 Constipation, unspecified; E03.9 Hypothyroidism, unspecified; I48.0 Paroxysmal atrial fibrillation; E55.9 Vitamin D deficiency, unspecified; E78.5 Hyperlipidemia, unspecified; G62.9 Polyneuropathy, unspecified; M17.12 Unilateral primary osteoarthritis, left knee; M51.27 Other intervertebral disc displacement, lumbosacral region; Z88.8 Allergy status to other drugs, medicaments and biological substances; Z79.01 Long term (current) use of anticoagulants; Z79.82 Long term (current) use of aspirin; Z79.899 Other long term (current) drug therapy; X58.XXXD Exposure to other specified factors, subsequent encounter ==

== ENCOUNTER → 2022-09-27 | Outpatient (CLI) | payer MEDICARE | END | disposition home or self-care (01) | LOC: RESCLI 02:11 | PROVIDERS: ATTEND Internal Medicine | DX: I12.9 Hypertensive chronic kidney disease with stage 1 through stage 4 chronic kidney disease, or unspecified chronic kidney disease (principal); N18.9 Chronic kidney disease, unspecified; Z12.11 Encounter for screening for malignant neoplasm of colon; K64.9 Unspecified hemorrhoids; L21.8 Other seborrheic dermatitis; R53.83 Other fatigue; M54.9 Dorsalgia, unspecified; M17.12 Unilateral primary osteoarthritis, left knee; E03.9 Hypothyroidism, unspecified; I48.0 Paroxysmal atrial fibrillation; E78.5 Hyperlipidemia, unspecified; G62.9 Polyneuropathy, unspecified; I73.9 Peripheral vascular disease, unspecified; M54.31 Sciatica, right side; K59.00 Constipation, unspecified; Z88.8 Allergy status to other drugs, medicaments and biological substances; Z82.49 Family history of ischemic heart disease and other diseases of the circulatory system; Z98.890 Other specified postprocedural states; Z79.01 Long term (current) use of anticoagulants; Z79.82 Long term (current) use of aspirin; Z79.899 Other long term (current) drug therapy ==

== ENCOUNTER → 2022-10-03 | Outpatient (CLI) | payer MEDICARE ==
[2022-10-03 10:57] LABS: BASO # 0.1 10*3/uL (0.0-0.1); BASO % 1.2 % (0.0-1.0); EOS # 0.2 10*3/uL (0.0-0.4); EOS % 2.9 % (1.0-4.0); HEMATOCRIT 42.5 % (42.0-52.0); LYMPH # 1.8 10*3/uL (1.3-4.4); LYMPH % 34.8 % (27.0-41.0); MEAN CELL VOLUME 88.9 fl (80.0-94.0); MEAN CORPUSCULAR HGB 29.1 pg (27.0-31.0); MEAN CORPUSCULAR HGB CONC 32.7 g/dl (33.0-37.0); MEAN PLATELET VOLUME 9.6 fl (9.6-12.3); MONO # 0.4 10*3/uL (0.1-1.0); MONO % 8.4 % (3.0-9.0); NEUT # 2.7 10*3/uL (2.3-7.9); NEUT % 52.5 % (47.0-73.0); PLATELET COUNT AUTOMATED 274 10*3/uL (130-400); RED BLOOD COUNT 4.78 10*6/uL (4.50-5.90); RED CELL DISTRI WIDTH 13.1 % (0-14.5); WHITE BLOOD COUNT 5.1 10*3/uL (4.8-10.8)
[2022-10-03 11:14] LABS: ALKALINE PHOSPHATASE 57 U/L (46-116); BUN 16 mg/dl (9-23); CHLORIDE 103 mmol/L (98-107); SGPT/ALT 25 U/L (10-49); TOTAL PROTEIN 6.7 gm/dL (6.0-8.0)
[2022-10-03 11:25] LABS: VITAMIN D, 25-HYDROXY 53.7 ng/mL (30-100)
== END | disposition home or self-care (01) ==
LOC: LAB 10:11
PROVIDERS: Family Medicine; ATTEND Internal Medicine
DX: I12.9 Hypertensive chronic kidney disease with stage 1 through stage 4 chronic kidney disease, or unspecified chronic kidney disease (principal); N18.9 Chronic kidney disease, unspecified; E55.9 Vitamin D deficiency, unspecified; E78.5 Hyperlipidemia, unspecified; M54.9 Dorsalgia, unspecified; R53.83 Other fatigue; Z79.899 Other long term (current) drug therapy

== ENCOUNTER → 2022-10-28 | Outpatient (CLI) | payer MEDICARE | END | disposition home or self-care (01) | LOC: ORTHO 00:36 | PROVIDERS: ATTEND Orthopaedic Surgery | DX: M17.12 Unilateral primary osteoarthritis, left knee (principal); M25.562 Pain in left knee ==

== ENCOUNTER → 2023-04-20 | Outpatient (CLI) | payer MEDICARE | END | disposition home or self-care (01) | LOC: RESCLI 00:12 | PROVIDERS: ATTEND Internal Medicine | DX: E78.5 Hyperlipidemia, unspecified (principal); I48.0 Paroxysmal atrial fibrillation; I10 Essential (primary) hypertension; E55.9 Vitamin D deficiency, unspecified; E66.9 Obesity, unspecified; M19.90 Unspecified osteoarthritis, unspecified site; Z98.890 Other specified postprocedural states; Z79.899 Other long term (current) drug therapy ==

== ENCOUNTER → 2023-10-02 | Outpatient (CLI) | payer MEDICARE ==
[2023-10-02 14:05] LABS: TOTAL PROTEIN 6.8 gm/dL (6.0-8.0)
== END | disposition home or self-care (01) ==
LOC: LAB 13:00
PROVIDERS: ATTEND Internal Medicine
DX: E78.5 Hyperlipidemia, unspecified (principal)

== ENCOUNTER → 2023-10-13 | Outpatient (CLI) | payer MEDICARE | END | disposition home or self-care (01) | LOC: RESCLI 02:11 | PROVIDERS: Family Medicine; ATTEND Internal Medicine | DX: M10.9 Gout, unspecified (principal); I10 Essential (primary) hypertension; E78.5 Hyperlipidemia, unspecified; E03.9 Hypothyroidism, unspecified; I48.0 Paroxysmal atrial fibrillation; M54.9 Dorsalgia, unspecified; G89.29 Other chronic pain; E55.9 Vitamin D deficiency, unspecified; K59.00 Constipation, unspecified; L21.0 Seborrhea capitis; Z82.49 Family history of ischemic heart disease and other diseases of the circulatory system; Z79.899 Other long term (current) drug therapy; Z88.8 Allergy status to other drugs, medicaments and biological substances ==

== ENCOUNTER → 2024-04-01 | Outpatient (CLI) | payer MEDICARE ==
[2024-04-01 09:30] LABS: TOTAL PROTEIN 6.6 gm/dL (6.0-8.0)
== END | disposition home or self-care (01) ==
LOC: LAB 08:52
PROVIDERS: ATTEND Internal Medicine
DX: E78.5 Hyperlipidemia, unspecified (principal)

== ENCOUNTER → 2024-10-14 | Outpatient (CLI) | payer MEDICARE ==
[~2024-10-14] MED LIST changes: +CLONAZEPAM2 M1 PO; +HYDROXYZINE PAM25 M1 PO; +LORADAMED10 MG PO; +MIRALAX POWDER17 G1 PO; +NICODERM CQ1 EAC1 TD; +PROTONIX40 MG PO; +VRAYLAR3 MG PO
[2024-10-14 12:32] LABS: BASO % 0.5 % (0.0-1.0); EOS # 0.2 10*3/uL (0.0-0.4); EOS % 3.4 % (1.0-4.0); HEMATOCRIT 41.4 % (42.0-52.0); MEAN CELL VOLUME 89.6 fl (80.0-94.0); MEAN CORPUSCULAR HGB 28.8 pg (27.0-31.0); MEAN CORPUSCULAR HGB CONC 32.1 g/dl (33.0-37.0); MEAN PLATELET VOLUME 9.1 fl (9.6-12.3); MONO # 0.4 10*3/uL (0.1-1.0); MONO % 6.9 % (3.0-9.0); NEUT # 3.7 10*3/uL (2.3-7.9); NEUT % 62.8 % (47.0-73.0); PLATELET COUNT AUTOMATED 299 10*3/uL (130-400); RED BLOOD COUNT 4.62 10*6/uL (4.50-5.90); RED CELL DISTRI WIDTH 12.8 % (0-14.5); WHITE BLOOD COUNT 5.9 10*3/uL (4.8-10.8)
[2024-10-14 13:12] LABS: BUN 16 mg/dl (9-23); CHLORIDE 103 mmol/L (98-107); CHOLESTEROL 136 mg/dL (<200); LDL CHOLESTEROL 84 mg/dL (9-159); POTASSIUM 4.3 mmol/L (3.4-5.1); TRIGLYCERIDES 109 mg/dl (<150)
[2024-10-14 13:24] LABS: VITAMIN D, 25-HYDROXY 75.7 ng/mL (30-100)
== END | disposition home or self-care (01) ==
LOC: RESCLI 01:30 → LAB 01:30 → RESCLI 04:41
PROVIDERS: ATTEND Internal Medicine
DX: Z12.5 Encounter for screening for malignant neoplasm of prostate (principal); I10 Essential (primary) hypertension; E78.5 Hyperlipidemia, unspecified; E55.9 Vitamin D deficiency, unspecified; E66.9 Obesity, unspecified; E03.9 Hypothyroidism, unspecified; Z79.899 Other long term (current) drug therapy

== ENCOUNTER → 2024-10-16 | Outpatient (CLI) | payer MEDICARE | END | disposition home or self-care (01) | LOC: RAD 11:25 | PROVIDERS: ATTEND Family Medicine | DX: M16.11 Unilateral primary osteoarthritis, right hip (principal); M25.851 Other specified joint disorders, right hip; M25.751 Osteophyte, right hip; M25.551 Pain in right hip ==

== ENCOUNTER → 2025-04-10 | Outpatient (CLI) | payer MEDICARE | END | disposition home or self-care (01) | LOC: LAB 14:02 | PROVIDERS: ATTEND Nurse Practitioner Family | DX: R30.0 Dysuria (principal) ==

== ENCOUNTER → 2025-05-28 | Outpatient (CLI) | payer MEDICARE | END | disposition home or self-care (01) | LOC: RAD 07:31 | PROVIDERS: ATTEND Nurse Practitioner Family | DX: M85.852 Other specified disorders of bone density and structure, left thigh (principal); Z13.820 Encounter for screening for osteoporosis; Z00.00 Encounter for general adult medical examination without abnormal findings ==